=== PATIENT | female | born 1970 | race Caucasian/White ===

== ENCOUNTER 2018-05-09 21:14 | Inpatient (IN) ==
[2018-05-09] MEDS ORDERED: DUONEB (A & A) INH ONE (22:55)
[2018-05-09 23:03] LABS: BASO# 0.09 X1000 (0.0-0.2); BASO% 0.4 % (0.0-0.8); EOS# 0.24 X1000 (0.0-0.7); HEMATOCRIT 34.9 % (37.0-47.0); HEMOGLOBIN 11.9 g/dL (12.0-16.0); IMM GRAN# 0.08 X1000 (0.0-0.04); IMM GRAN% 0.3 % (0.0-0.5); LYMPH# 2.32 X1000 (1.2-3.4); LYMPH% 9.5 % (20.5-51.1); MCH 31.1 PG (27-31); MCHC 34.1 g/dL (33-37); MCV 91.1 FL (81-99); MONO# 2.89 X1000 (0.11-0.59); MONO% 11.8 % (1.7-9.3); MPV 9.4 FL (7.4-10.4); NEUT# 18.87 X1000 (1.4-6.5); PLT 431 X1000 (130-400); RBC 3.83 XMIL (4.2-5.4); RDW 11.8 % (11.5-14.5); WBC 24.49 X1000 (4.8-10.8)
--- NOTE | 2018-05-09 23:06 | PROVIDER DOCUMENTATION ---
HPI-Respiratory General - General Chief Complaint: Shortness of Breath Stated Complaint: POSS PNEUMONIA Time Seen by Provider: 05/09/18 22:44 Source: patient, old records Allergies/Adverse Reactions: Patient Allergies Allergy/AdvReac Type Severity Reaction Status Date / Time tramadol [From Ultram] Allergy Unknown Verified 05/09/18 22:56 pregabalin [From Lyrica] AdvReac Severe made me Verified 05/09/18 22:56 have a seizure 10 years ago Home Medications: Home Medication List Medication Instructions Recorded Confirmed Last Taken Type NK [No Home Medications] 05/09/18 05/09/18 Unknown History - History of Present Illness-Resp Nature of Presenting Problem: 48 yo WF smoker was last hospitalized in May 2017 with pneumonia. She was treated, improved and eventually went back to smoking around a pack per day. Two days ago she developed low grade fever, chills and purulent sputum production. She also developed CP which is pleuritic and mainly in the right upper lateral thorax. Onset/Duration: reports: 2 days ago Timing: reports: still present Cough Quality/Degree: reports: moderate, productive cough Episode Frequency: rare episodes Current Respiratory Medication Therapy: Initiated see nurses note Modifying Factors: improves with: nothing Associated Symptoms: reports: denies symptoms Review of Systems - Adult - REVIEW OF SYSTEMS - ADULT Constitutional: reports: see HPI, chills, fever, fatique Respiratory: reports: see HPI, cough, excessive sputum production, pleurisy, shortness of breath, wheezing Gastrointestinal: reports: no symptoms reported Genitourinary: reports: no symptoms reported Musculoskeletal: reports: no symptoms reported Integumentary: reports: no symptoms reported Neurological: reports: no symptoms reported Past History - Adult - PAST MEDICAL HISTORY-ADULT Review of Records: reports: Old Records Reviewed, Nursing Assessment Review, Medications Reviewed Major Childhood Illnesses: reports: denies history Cardiovascular: reports: denies history Respiratory: reports: denies history Gastrointestinal: reports: denies history Obstetrical/Gynecological: reports: denies history Genitourinary: reports: denies history Musculoskeletal: reports: denies history Neurological: reports: Seizures/Epilepsy Psychiatric: reports: anxiety Endocrine/Immune: reports: denies history Other Conditions: reports: denies history - PRIOR SURGERIES/PROCEDURES Surgical/Procedure History: reports: hysterectomy - IMMUNIZATION STATUS Childhood Immunizations: See Nurse Assessment Flu Vaccine: See Nurse Assessment - FAMILY HISTORY Family History: reviewed, not pertinent Physical Exam-General - PHYSICAL EXAM-ADULT Initial Vital Signs Reviewed: Yes - CONSTITUTIONAL General Appearance: appears well, alert, no apparent distress - EYES Eyes: PERRL/EOMI, pink conjunctivae, anisocoria - HEAD, EARS, NOSE, MOUTH & THROAT HENMT: normocephalic/atraumatic, moist mucous membranes, normal ENT inspection - NECK Neck: non-tender - RESPIRATORY Respiratory: chest non-tender, respiratory distress, decreased breath sounds, crackles, rales, rhonchi, wheezing. negative: lungs clear - CARDIOVASCULAR Cardiovascular: normal peripheral pulses, regular rate, rhythm - GASTROINTESTINAL (ABDOMEN) Abdominal Exam: normal bowel sounds, non tender, soft - MUSCULOSKELETAL Back Exam: normal inspection, no CVA tenderness, no vertebral tenderness Extremity: normal range of motion, non-tender - SKIN Integumentary: normal color, normal turgor - NEUROLOGIC Neurologic: grossly normal Progress - PLAN OF CARE/RESULTS Progress/Plan/Lab Results: Vital Signs - 8 hr 05/09/18 22:05 05/09/18 23:25 Temperature 99.8 F H Pulse Rate 113 H 98 H Respiratory Rate 20 20 Blood Pressure 122/73 O2 Sat by Pulse Oximetry 89 L 91 L Laboratory Results - last 24 hr 05/09/18 05/09/18 05/09/18 22:20 22:22 22:22 WBC 24.49 H RBC 3.83 L Hgb 11.9 L Hct 34.9 L MCV 91.1 MCH 31.1 H MCHC 34.1 RDW Std Deviation 11.8 Plt Count 431 H MPV 9.4 Immature Gran % (Auto) 0.3 Neut % (Auto) 77.0 H Lymph % (Auto) 9.5 L [place] % (Auto) 11.8 H Eos % (Auto) 1.0 Baso % (Auto) 0.4 Immature Gran # (Auto) 0.08 H Neut # (Auto) 18.87 H Lymph # (Auto) 2.32 [place] # (Auto) 2.89 H Eos # (Auto) 0.24 Baso # (Auto) 0.09 Segmented Neutrophils 80 H Lymphocytes 15 L Monocytes 3 Eosinophils 1 PT 13.3 INR 0.96 PTT (Actin FS) 33.4 Sodium 135 L Potassium 4.0 Chloride 96 L Carbon Dioxide 22 L Anion Gap 18 BUN 8 Creatinine 0.5 Estimated GFR/1.73 m2 > 60 BUN/Creatinine Ratio 16 Glucose 116 H Calculated Osmolality 269 Calcium 9.0 Total Bilirubin 0.40 AST 26 ALT 20 Alkaline Phosphatase 127 H Creatine Kinase 320 H Creatine Kinase Index 1.7 CK-MB (CK-2) 5.33 H Troponin T Total Protein 6.9 Albumin 3.5 Globulin 3.0 Albumin/Globulin Ratio 1.0 Plasma Lactate Urine Opiates Screen Ur Oxycodone Screen Urine Methadone Screen U Propoxyphene Qual Ur Barbituates Screen Ur Tricyclics Screen Ur Phencyclidine Scrn Ur Amphetamines Screen U Methamphetamines Scrn U Benzodiazepines Scrn Urine Cocaine Screen U Cannabinoids Screen 05/09/18 05/09/18 05/09/18 22:22 22:41 23:18 WBC RBC Hgb Hct MCV MCH MCHC RDW Std Deviation Plt Count MPV Immature Gran % (Auto) Neut % (Auto) Lymph % (Auto) [place] % (Auto) Eos % (Auto) Baso % (Auto) Immature Gran # (Auto) Neut # (Auto) Lymph # (Auto) [place] # (Auto) Eos # (Auto) Baso # (Auto) Segmented Neutrophils Lymphocytes Monocytes Eosinophils PT INR PTT (Actin FS) Sodium Potassium Chloride Carbon Dioxide Anion Gap BUN Creatinine Estimated GFR/1.73 m2 BUN/Creatinine Ratio Glucose Calculated Osmolality Calcium Total Bilirubin AST ALT Alkaline Phosphatase Creatine Kinase Creatine Kinase Index CK-MB (CK-2) Troponin T < 0.010 Total Protein Albumin Globulin Albumin/Globulin Ratio Plasma Lactate 0.8 Urine Opiates Screen PRESUMPTIVE POSITIVE A Ur Oxycodone Screen NONE DETECTED Urine Methadone Screen NONE DETECTED U Propoxyphene Qual NONE DETECTED Ur Barbituates Screen NONE DETECTED Ur Tricyclics Screen NONE DETECTED Ur Phencyclidine Scrn NONE DETECTED Ur Amphetamines Screen PRESUMPTIVE POSITIVE A U Methamphetamines Scrn PRESUMPTIVE POSITIVE A U Benzodiazepines Scrn NONE DETECTED Urine Cocaine Screen NONE DETECTED U Cannabinoids Screen NONE DETECTED Orders Category Date Time Status Cardiac Monitoring DIRECTED Care 05/09/18 22:40 Active IV Insertion ORDERED Care 05/09/18 22:40 Completed Notify MD of + Sepsis Screen NOW Care 05/09/18 22:40 Active Notify Physician As Ordered Care 05/09/18 22:40 Active CHEST-PORTABLE [RAD] Stat Exams 05/09/18 22:40 Taken BLOOD CULTURE [BLDCUL] Stat Lab 05/09/18 22:40 Ordered CBC WITH DIFF [HEME] Stat Lab 05/09/18 22:20 Completed CK PROFILE [SP CHEM] Stat Lab 05/09/18 22:22 Completed COMPREHENSIVE METABOLIC PANEL [CHEM] Stat Lab 05/09/18 22:22 Completed LACTATE, PLASMA [CHEM] Q3H Lab 05/09/18 22:41 Completed PROTIME WITH INR [COAG] Stat Lab 05/09/18 22:22 Completed PTT [COAG] Stat Lab 05/09/18 22:22 Completed TROPONIN T Stat Lab 05/09/18 22:[address] W/POSS RFLX CULT [URINALYSIS] Stat Lab 05/09/18 22:40 Or[address] DRUG SCREEN [address] Stat Lab 05/09/18 23:18 Completed Albuterol 2.5MG/Ipratrop 0.5MG [Duoneb (A & A)] Med 05/09/18 22:55 Discontinued 3 ml INH NOW ONE Azithromycin [Zithromax] Med 05/09/18 23:12 Discontinued 500 mg PO NOW ONE CefTRIAXONE [Rocephin] 1 gm Med 05/09/18 23:11 Discontinued 0.9% Sodium Chloride Inj [Ns] 50 ml IV NOW Methylprednisolone Sod Succ [Solu-Medrol] Med 05/09/18 23:11 Discontinued 80 mg IV NOW ONE Aerosol Treatments Routine Oth 05/09/18 22:55 Completed Aerosol Treatments Stat Oth 05/09/18 22:55 Completed Oxygen Device Stat Oth 05/09/18 22:40 Active Result Diagrams: 05/09/18 22:20 05/09/18 22:22 - REASSESSMENT Reassessment #1 Time Reassessed: 00:01 Status: improving Departure - Departure Date of Disposition Decision: 05/10/18 Time of Disposition Decision: 00:21 DIAGNOSIS: Pneumonia Qualifiers: Pneumonia type: due to unspecified organism Laterality: bilateral Lung location : lower lobe of lung Qualified Code(s): J18.1 - Lobar pneumonia, unspecified organism Disposition: ADMITTED INPATIENT 09 Certified Medical Emergency: Emergent Condition: Stable Referrals and Follow-Ups: None,PCP [Primary Care Provider] - - Critical Care Note This patient required my direct & personal management of CC.: Yes Total Time (mins): 30 Critical Care Statement: This patient required my direct personal management to treat or rule out processes, the absence of which, could potentiallly result in sudden, clinically significant life or limb threatening deterioration. Attestation - Physician/ KATRIN Attestation The physician spent face to face time with patient:: Yes Advanced Practice Provider documentation review:: Supervising physician onsite and consulted in the evaluation and care of this patient. The physician did have a face to face encounter with the patient.
[2018-05-09] MEDS ORDERED: ROCEPHIN 1 GM in NS 50 ML IV ONE (23:11)
[2018-05-09] MEDS ORDERED: SOLU-MEDROL IV ONE (23:11)
[2018-05-09] MEDS ORDERED: ZITHROMAX PO ONE (23:12)
[2018-05-09 23:20] LABS: AGAP 18; ALBUMIN 3.5 g/dL (3.5-5.0); ALKALINE PHOSPHATASE 127 U/L (32-104); BUN 8 mg/dL (8-22); CHLORIDE 96 mmol/L (98-107); COSMO 269; CREATININE 0.5 mg/dL (0.5-0.9); ESTIMATED GFR > 60; GLUCOSE 116 mg/dL (70-104); GOT 26 U/L (10-30); GPT 20 U/L (10-36); SODIUM 135 mmol/L (136-145); TCO2 22 mmol/L (25-35); TOTAL PROTEIN 6.9 g/dL (6.3-8.3)
[2018-05-09 23:21] LABS: EOS 1 % (1-10); LYMPHS 15 % (21-51); MONO 3 % (1-9); SEGS 80 % (42-75)
[2018-05-09 23:22] LABS: CK PROFILE 320 U/L (24-173)
[2018-05-09 23:29] LABS: INR 0.96; PROTIME 13.3 Seconds (11.0-16.0)
[2018-05-09 23:30] LABS: PTT 33.4 Seconds (22.3-41.8)
[2018-05-09 23:40] LABS: UR AMPHETAMINES QUAL PRESUMPTIVE POSITIVE (NONE DETECT); UR BARBITUATES QUAL NONE DETECTED (NONE DETECT); UR BENZODIAZEPIN QUAL NONE DETECTED (NONE DETECT); UR CANNABINOIDS QUAL NONE DETECTED (NONE DETECT); UR COCAINE QUAL NONE DETECTED (NONE DETECT); UR METHADONE QUAL NONE DETECTED (NONE DETECT); UR METHAMPHETAMINE QUAL PRESUMPTIVE POSITIVE (NONE DETECT); UR OPIATES QUAL PRESUMPTIVE POSITIVE (NONE DETECT); UR OXYCODONE QUAL NONE DETECTED (NONE DETECT); UR PCP QUAL NONE DETECTED (NONE DETECT); UR PROPOXYPHENE QUAL NONE DETECTED (NONE DETECT); UR TCA QUAL NONE DETECTED (NONE DETECT)
[2018-05-09 23:41] LABS: CK INDEX 1.7 (0.0-2.5); CK-MB 5.33 ng/mL (0.0-5.0)
[2018-05-10] MEDS ORDERED: TORADOL IV PRN (00:12)
[2018-05-10] MEDS ORDERED: SOLU-MEDROL IV ONE (00:19)
[2018-05-10 00:20] LABS: BILIRUBIN URINE NEGATIVE (NEGATIVE); BLOOD URINE 1+ (NEGATIVE); CLARITY CLEAR (CLEAR); COLOR AMBER; GLUCOSE URINE NEGATIVE (NEGATIVE); KETONE URINE TRACE mg/dL (NEGATIVE); LEUKOCYTES URINE 1+ (NEGATIVE); NITRITE URINE NEGATIVE (NEGATIVE); PH URINE 6.5; PROTEIN URINE 1+(30 mg/dL) mg/dL (NEGATIVE); SP GRAVITY URINE 1.015; URINE BACTERIA 2+ /HFP; URINE EPITHELIAL CELLS <10 /HPF (<10); URINE RBC <10 /HPF (<10); URINE SOURCE CLEAN CATCH; UROBILINOGEN URINE NORMAL
[2018-05-10] MEDS: DUONEB (A & A) INH SCH ×4 (03:06→15:42)
[2018-05-10 05:00] LABS: INFLUENZA A NEGATIVE (NEGATIVE); INFLUENZA B NEGATIVE (NEGATIVE)
[2018-05-10] MEDS ORDERED: TESSALON PO PRN (05:36)
[2018-05-10] MEDS ORDERED: ZOFRAN IV PRN (05:36)
[2018-05-10] MEDS ORDERED: DUONEB (A & A) INH SCH (07:30)
[2018-05-10] MEDS ORDERED: TYLENOL PO PRN (10:17)
[2018-05-10] MEDS ORDERED: NS 1,000 ML IV SCH (10:30)
[2018-05-10] MEDS ORDERED: ZITHROMAX 500 MG/NS 500 MG/250 ML IVPB IV SCH (10:30)
--- NOTE | 2018-05-10 10:51 | Diag Imaging Result Doc PS360 ---
EXAM: CHEST-PORTABLE - 05/09/2018 HISTORY: sepsis protocol, cough TECHNIQUE: Portable chest COMPARISON: 05/29/2017 FINDINGS: Heart size is normal. There is mild prominence of basilar markings, although these may be exaggerated by breast shadow overlap. There is no dense consolidation, pleural effusion, or pneumothorax identified. IMPRESSION: Mild prominence of basilar markings. Mild basilar infiltrates cannot be excluded. Electronically signed by Juan Carlos Matute 05/10/2018 10:48 AM
[2018-05-10 11:48] VITALS: BP 107/92
--- NOTE | 2018-05-10 14:45 | HISTORY AND PHYSICAL ---
CHIEF COMPLAINT: Shortness of breath, cough and congestion for 2 weeks. HISTORY OF PRESENT ILLNESS: This is a 48-year-old female with a history of fibromyalgia, seizures, and anxiety she presents to the emergency room complaining of low-grade fever, chills and a productive cough. Over the last 12 hours or so she developed a pleuritic chest pain that is in the right side that is present with coughing and deep breathing. Chest x-ray revealed bilateral lower lobe pneumonia. Blood cultures were obtained and she was given Rocephin, azithromycin and steroids and is being admitted for further evaluation and treatment. PAST MEDICAL HISTORY: Fibromyalgia, seizures, anxiety. PAST SURGICAL HISTORY: Hysterectomy. SOCIAL HISTORY: She smokes a pack a day. She denies any alcohol or illicit drug use. ALLERGIES: Tramadol and pregabalin. HOME MEDICATIONS: She does not take any home medications on a routine basis. REVIEW OF SYMPTOMS: Is discussed with the patient with pertinent positives stated in the HPI. She denied any palpitations, syncope, dizziness, any nausea, vomiting, diarrhea, constipation, black or bloody vomitus or stools, any hematuria, dysuria, frequency, urgency. PHYSICAL EXAMINATION: GENERAL: This is a 48-year-old female who is sitting up in the bed in no distress. VITAL SIGNS: Blood pressure is 117/71, heart rate 78, respirations are 20, temperature is 98.3 degrees with O2 saturation that were 87% on room air and 93-96% on 3 L nasal cannula. HEENT: Pupils are equal, round, react to light. EOMs are intact. Sclerae are anicteric. Head is normocephalic, atraumatic. Mucous membranes are moist. NECK: Supple with trachea midline. CARDIOVASCULAR: Regular rate and rhythm. S1 and S2 appreciated. She has no lower extremity edema. Peripheral pulses are palpable x4 extremities. PULMONARY: She has wheezes scattered throughout with decreased breath sounds. Chest rise and fall symmetrically with respiration. No increased work of breathing noted. GASTROINTESTINAL: Abdomen is soft, nontender, nondistended. Bowel sounds in all 4 quadrants. NEUROLOGIC: She is alert and oriented x3. SKIN: Warm and dry with no rashes or lesions. LABS: WBC is 24.4 with hemoglobin 11.9, hematocrit 34.9 and platelets of 431,000. Sodium is 135, potassium 4, BUN 8, creatinine 0.5 with a glucose of 116. Troponin is negative. Urinalysis is essentially negative. She does have 10 to 20 microscopic white blood cells. Urine drug screen was presumptive positive for opiates, amphetamines and methamphetamines. Influenza A and B were negative. Blood cultures, urine culture pending. Chest x-ray revealed mild basilar infiltrates. ASSESSMENT AND PLAN: 1. Bilateral lower lobe pneumonia. We will continue azithromycin and Rocephin and any further antibiotics will be culture driven. 2. Hypoxemia. Will give supplemental oxygen and monitor saturations. 3. Leukocytosis secondary to #1. PLAN: We will continue antibiotics as stated above, any further will be culture driven. We will give duo nebs q.4 hours with steroids to taper, start incentive spirometer, get a sputum specimen, will continue her telemetry. Further treatments pending hospital course. Dictated by BROCK Butler for Chi Adams MD This chart was documented by, BROCK Butler and accurately reflects the services performed, treatment plan and medical decisions as attested by the providers signature Chi Adams MD. cc: BROCK Butler MD
[2018-05-10] MEDS ORDERED: NICODERM PATCH TD SCH (16:15)
[2018-05-10] MEDS ORDERED: ROCEPHIN 1 GM in NS 50 ML IV SCH (18:00)
--- NOTE | 2018-05-10 18:38 | HISTORY AND PHYSICAL ---
ADDENDUM TO HISTORY AND PHYSICAL: I saw the patient [id number], and fully agree with the assessment and plan of Nurse Practitioner Rhianonn Petit. This is a 48-year-old female who was admitted with bilateral pneumonia, along with hypoxemia, fever and leukocytosis. She has been a chronic tobacco user. She will be treated with IV ceftriaxone along with azithromycin. I am also going to provide nicotine patch since she is a heavy tobacco user. General supportive care, including IV fluids, will be provided. Please refer to the chart for further documentation. cc: Chi Adams MD
--- NOTE | 2018-05-12 14:38 | DISCHARGE SUMMARY ---
ADMISSION DATE: 05/10/2018 DISCHARGE DATE: 05/10/2018 DISCHARGE DIAGNOSES: 1. Leukocytosis secondary to bilateral pneumonia with hypoxemia. 2. Nicotine dependence. HOSPITAL COURSE: This is a 48-year-old female who presented with low-grade fever, chills, and productive cough. She also had some pleuritic chest pain and her chest x-ray revealed bilateral lower lobe pneumonia. She was admitted to the hospital and was given ceftriaxone along with azithromycin intravenously. She had also received supplemental oxygen and IV fluids. The same day at around 6 p.m. she decided to leave the hospital against medical advise and therefore left the hospital. DISPOSITION: The patient left against medical advice. cc: Chi Adams MD
== END 2018-05-10 17:00 | disposition left against medical advice (07) | DRG 195 ==
LOC: P.ED 21:14 → P.MEDSURG 05-10 00:36
PROVIDERS: ATTEND Internal Medicine
CPT/HCPCS: 71010; 71045; 80053; 80104; 80301; 80305; 81001; 82550; 82553; 83605; 84484; 85025; 85610; 85730; 87040; 87088; 87275; 87276; 87804; 94640; 94761; 94799; 96365; 96375; 99285; A9270; G0431; G0434; G0477; J0456; J0696; J1885; J2405; J2930; J7030

== ENCOUNTER 2019-05-21 16:13 | Inpatient (IN) ==
--- NOTE | 2019-05-21 17:37 | Diag Imaging Result Doc PS360 ---
EXAM: CHEST-2 VIEWS 05/21/2019 HISTORY: COUGH TECHNIQUE: PA and lateral chest COMMENT: there is ill-defined opacity in both lung bases. This is apparently worse in the right middle lobe than on 05/15/2019. The heart size is not enlarged. IMPRESSION: Mild bronchopneumonia particularly in the right middle lobe. Electronically signed by Tano Joseph 05/21/2019 5:34 PM
[2019-05-21] MEDS ORDERED: ROCEPHIN 1 GM in NS 50 ML IV ONE ×2 (17:42→19:03)
[2019-05-21 18:55] LABS: BASO# 0.04 X1000 (0.0-0.2); BASO% 0.2 % (0.0-0.8); EOS# 0.24 X1000 (0.0-0.7); EOS% 1.2 % (0.0-10.0); HEMATOCRIT 33.8 % (37.0-47.0); HEMOGLOBIN 11.1 g/dL (12.0-16.0); IMM GRAN# 0.13 X1000 (0.0-0.04); IMM GRAN% 0.6 % (0.0-0.5); LYMPH# 2.33 X1000 (1.2-3.4); LYMPH% 11.6 % (20.5-51.1); MCHC 32.8 g/dL (33-37); MCV 94.4 FL (81-99); MONO# 1.22 X1000 (0.11-0.59); MPV 9.1 FL (7.4-10.4); NEUT# 16.21 X1000 (1.4-6.5); NEUT% 80.4 % (42.2-75.2); PLT 532 X1000 (130-400); RBC 3.58 XMIL (4.2-5.4); RDW 13.2 % (11.5-14.5); WBC 20.17 X1000 (4.8-10.8)
[2019-05-21] MEDS ORDERED: NS 1,000 ML IV ONE ×2 (19:10→19:22)
[2019-05-21 19:12] LABS: AGAP 15; ALBUMIN 3.2 g/dL (3.5-5.0); ALKALINE PHOSPHATASE 342 U/L (32-104); BUN 10 mg/dL (8-22); CALCIUM 8.6 mg/dL (8.8-10.2); CHLORIDE 97 mmol/L (98-107); COSMO 268; CREATININE 0.5 mg/dL (0.5-0.9); ESTIMATED GFR > 60; GLUCOSE 82 mg/dL (70-104); GOT 47 U/L (10-30); GPT 63 U/L (10-36); SODIUM 135 mmol/L (136-145); TCO2 24 mmol/L (25-35); TOTAL PROTEIN 8.3 g/dL (6.3-8.3)
[2019-05-21] MEDS ORDERED: TYLENOL PO PRN (19:22)
[2019-05-21] MEDS ORDERED: ZOFRAN IV PRN (19:22)
--- NOTE | 2019-05-21 19:23 | PROVIDER DOCUMENTATION ---
This chart was entered by Blanca Nazario Scribe, acting as scribe for Renee Islas CRNP. HPI-General Adult - General Chief Complaint: Cough Stated Complaint: FLU LIKE SYMPTOMS Time Seen by Provider: 05/21/19 17:22 Source: patient Allergies/Adverse Reactions: Patient Allergies Allergy/AdvReac Type Severity Reaction Status Date / Time tramadol [From Ultram] Allergy Unknown Verified 05/21/19 17:55 pregabalin [From Lyrica] AdvReac Severe made me Verified 05/21/19 17:55 have a seizure 10 years ago Home Medications: Home Medication List Medication Instructions Recorded Confirmed Last Taken Type NK [No Home Medications] 05/21/19 05/21/19 Unknown History - History of Present Illness -Gen Adult Nature of Presenting Problems: 49yof presents to ED cc cough with yellow/lofton mucous, SOB, aches for 2 days. pt reports she was dx with flu 1 wk ago and symptoms have gotten worse. Pt is ill appearing upon exam. Location of Pain/Injury: reports: generalized Quality of Pain: reports: aching, tightness Severity: reports: mild, moderate Onset/Duration: reports: 2 days ago Timing: reports: still present Modifying Factors: worse with: coughing Associated Symptoms: reports: cough, fatigue, fever/chills, shortness of breath Similar Symptoms Previously?: Yes Recently seen or treated by another doctor?: Yes (seen 1 week ago) Review of Systems - Adult - REVIEW OF SYSTEMS - ADULT Constitutional: reports: see HPI, chills, fever, fatique Eyes: reports: no symptoms reported Ears, Nose, Mouth & Throat: reports: no symptoms reported Cardiovascular: reports: no symptoms reported Respiratory: reports: see HPI, cough, shortness of breath Gastrointestinal: reports: no symptoms reported Genitourinary: reports: no symptoms reported Musculoskeletal: reports: no symptoms reported Integumentary: reports: no symptoms reported Neurological: reports: no symptoms reported Psychiatric: reports: no symptoms reported Endocrine: reports: no symptoms reported Hematologic/Lymphatic: reports: no symptoms reported Allergic/Immunologic: reports: no symptoms reported All Other Systems: Reviewed and Negative Past History - Adult - PAST MEDICAL HISTORY-ADULT Review of Records: reports: Old Records Reviewed, Nursing Assessment Review, Medications Reviewed, Social history reviewed & non-contributory. Major Childhood Illnesses: reports: denies history Cardiovascular: reports: denies history Respiratory: reports: COPD Gastrointestinal: reports: denies history Obstetrical/Gynecological: reports: endometriosis Genitourinary: reports: denies history Musculoskeletal: reports: denies history Neurological: reports: Seizures/Epilepsy Psychiatric: reports: anxiety Endocrine/Immune: reports: denies history Other Conditions: reports: denies history - PRIOR SURGERIES/PROCEDURES Surgical/Procedure History: reports: hysterectomy, other - IMMUNIZATION STATUS Childhood Immunizations: See Nurse Assessment Flu Vaccine: See Nurse Assessment - FAMILY HISTORY Family History: reviewed, not pertinent Physical Exam-General - PHYSICAL EXAM-ADULT Initial Vital Signs Reviewed: Yes - CONSTITUTIONAL General Appearance: alert. negative: appears well, anxious, combative - EYES Eyes: PERRL/EOMI, pink conjunctivae. negative: photophobia - HEAD, EARS, NOSE, MOUTH & THROAT HENMT: normocephalic/atraumatic, moist mucous membranes. negative: angioedema - NECK Neck: supple, normal inspection - RESPIRATORY Respiratory: chest non-tender, crackles (left base). negative: wheezing - CARDIOVASCULAR Cardiovascular: normal peripheral pulses, regular rate, rhythm, no edema. negative: bradycardia, tachycardia - GASTROINTESTINAL (ABDOMEN) Abdominal Exam: normal bowel sounds, non tender, soft. negative: guarding - MUSCULOSKELETAL Extremity: normal inspection. negative: deformity - SKIN Integumentary: normal color, normal turgor. negative: diaphoresis, jaundice, rash - PSYCHIATRIC Psych/Mental Status: normal mood/affect, oriented x 3. negative: anxious, disheveled Progress - PLAN OF CARE/RESULTS Progress/Plan/Lab Results: Vital Signs - 8 hr 05/21/19 16:21 Temperature 98.4 F Pulse Rate 102 H Respiratory Rate 20 Blood Pressure 139/86 O2 Sat by Pulse Oximetry 94 L Orders Category Date Time Status cxr [CHEST-2 VIEWS] [RAD] Stat Exams 05/21/19 17:08 Completed BLOOD CULTURE [BLDCUL] Stat Lab 05/21/19 17:42 Uncollected CBC WITH ELECTRONIC DIFF [HEME] Stat Lab 05/21/19 17:42 Uncollected COMPREHENSIVE METABOLIC PANEL [CHEM] Stat Lab 05/21/19 17:42 Uncollected LACTATE, PLASMA [CHEM] Stat Lab 05/21/19 17:42 Uncollected CefTRIAXONE [Rocephin] 1 gm Med 02/07/20 17:42 Active 0.9% Sodium Chloride Inj [Ns] 50 ml IV NOW Result Diagrams: 05/21/19 18:35 05/21/19 18:35 - XRAY 1 XRAY: Bilateral XRAY Study: Chest Impression: See EMR Report (IMPRESSION: Mild bronchopneumonia particularly in the right middle lobe. Electronically signed by Tano Joseph 05/21/2019 5:34 PM) - CONSULTS/PCP/HOSPITALIST Notification #1 *Consult/PCP/Hospitalist*: DR. DURAN Time Discussed: 19:22 Consult Disposition: Admit Departure - Departure Date of Disposition Decision: 05/21/19 Time of Disposition Decision: 19:14 DIAGNOSIS: Pneumonia Qualifiers: Pneumonia type: due to unspecified organism Laterality: right Lung location: middle lobe of lung Qualified Code(s): J18.1 - Lobar pneumonia, unspecified organism Disposition: ADMITTED INPATIENT 09 Certified Medical Emergency: Emergent Condition: Stable Referrals and Follow-Ups: None,PCP [Primary Care Provider] - - Critical Care Note This patient required my direct & personal management of CC.: No Attestation - Physician/ KATRIN Attestation Patient care was provided by Advanced Practice Provider:: Yes Advanced Practice Provider:: Renee Islas Advanced Practice Provider documentation review:: The Mid-level provider documentation, treatment plan and medical decision making was reviewed by the ysician who agrees with all treatment and medical decision making by the MLP. The physician spent face to face time with patient:: No Advanced Practice Provider documentation review:: Supervising physician onsite and consulted in the evaluation and care of this patient. The physician did not have a face to face encounter with the patient. This chart was documented by the indicated scribe, (Blanca Nazario Scribe) and accurately reflects the services I performed and decisions made by me, Renee Islas CRNP, as attested by the provider's signature.
[2019-05-21] MEDS: TORADOL IV PRN (20:14)
[2019-05-21] MEDS: DUONEB (A & A) INH SCH ×2 (20:16→23:17)
[2019-05-21] MEDS ORDERED: NICODERM PATCH TD ONE (21:14)
[2019-05-22 00:02] LABS: INFLUENZA A NEGATIVE (NEGATIVE); INFLUENZA B POSITIVE (NEGATIVE)
[2019-05-22] MEDS: DUONEB (A & A) INH SCH ×6 (03:28→23:29)
[2019-05-22] MEDS: TORADOL IV PRN ×4 (05:21→20:23)
[2019-05-22] MEDS: ATIVAN PO PRN ×3 (05:21→20:23)
[2019-05-22 06:12] LABS: BASO# 0.02 X1000 (0.0-0.2); BASO% 0.1 % (0.0-0.8); EOS# 0.18 X1000 (0.0-0.7); EOS% 1.2 % (0.0-10.0); HEMATOCRIT 32.7 % (37.0-47.0); HEMOGLOBIN 10.5 g/dL (12.0-16.0); IMM GRAN# 0.07 X1000 (0.0-0.04); IMM GRAN% 0.5 % (0.0-0.5); LYMPH# 2.67 X1000 (1.2-3.4); LYMPH% 18.5 % (20.5-51.1); MCH 30.4 PG (27-31); MCHC 32.1 g/dL (33-37); MCV 94.8 FL (81-99); MONO# 0.87 X1000 (0.11-0.59); NEUT# 10.62 X1000 (1.4-6.5); NEUT% 73.7 % (42.2-75.2); PLT 510 X1000 (130-400); RBC 3.45 XMIL (4.2-5.4); RDW 13.2 % (11.5-14.5); WBC 14.43 X1000 (4.8-10.8)
[2019-05-22 06:37] LABS: AGAP 11; ALBUMIN 2.8 g/dL (3.5-5.0); ALKALINE PHOSPHATASE 272 U/L (32-104); BUN 8 mg/dL (8-22); CALCIUM 8.3 mg/dL (8.8-10.2); CHLORIDE 103 mmol/L (98-107); COSMO 271; CREATININE 0.5 mg/dL (0.5-0.9); ESTIMATED GFR > 60; GLUCOSE 112 mg/dL (70-104); GOT 32 U/L (10-30); GPT 47 U/L (10-36); POTASSIUM 3.9 mmol/L (3.5-5.1); SODIUM 136 mmol/L (136-145); TCO2 22 mmol/L (25-35); TOTAL PROTEIN 7.5 g/dL (6.3-8.3)
[2019-05-22] MEDS: ROCEPHIN 1 GM in NS 50 ML IV SCH (08:45)
[2019-05-22] MEDS: ZITHROMAX PO SCH (08:46)
[2019-05-22] MEDS: SOLU-MEDROL IV SCH ×3 (11:02→22:04)
[2019-05-22] MEDS: ROBITUSSIN-AC PO PRN ×3 (11:02→20:23)
--- NOTE | 2019-05-22 17:54 | HISTORY AND PHYSICAL ---
CHIEF COMPLAINT: Cough, shortness of breath, body aches. HPI: This is a 49-year-old female who reports being diagnosed with the flu a week prior with symptoms increasing. She has developed an increasing cough with yellow secretions, generalized body aches and shortness of breath at rest. Influenza A is negative. Influenza B is positive. Of note she was influenza A positive on 05/15/2019. At that time she was not given Tamiflu as she had symptoms for 2 weeks. PAST MEDICAL HISTORY: COPD, seizures. PAST SURGICAL HISTORY: Hysterectomy. SOCIAL HISTORY: She smokes a pack a day. She denies alcohol or illicit drug use. ALLERGIES: Tramadol, Lyrica and opiates. Of note, she states she has a seizure after taking Lyrica. HOME MEDICATIONS: None. REVIEW OF SYSTEMS: Discussed with patient with pertinent positives stated in the HPI. She denied any syncope or dizziness, any chest pain or palpitations, any nausea, vomiting, diarrhea, constipation, black or bloody vomitus or stools, hematuria, dysuria frequency, urgency. PHYSICAL EXAMINATION: GENERAL: This is a 49-year-old female who is sitting up on the bed on the [facility] floor in no distress. VITAL SIGNS: Blood pressure is 140/79 with a heart rate of 83, respirations are 20, temperature is 97.9 degrees oral with room air saturations 95 to 98 percent. HEENT: Pupils are equal, round, react to light. EOMs are intact. Sclerae are anicteric. Head is normocephalic, atraumatic. Mucous membranes are moist. NECK: Supple with trachea midline. CARDIOVASCULAR: Regular rate and rhythm. S1 and S2 are appreciated. She has no lower extremity edema. Calves are nontender bilateral with peripheral pulses palpable x4 extremities. PULMONARY: She has wheezes scattered throughout. Chest rises and falls symmetric respiration. Chest wall is nontender to palpation. GASTROINTESTINAL: Abdomen soft, nontender, nondistended with bowel sounds in all 4 quadrants. NEUROLOGIC: She is alert, oriented x3. SKIN: Warm and dry. LABS: WBC is 20.1 with hemoglobin 11.1, hematocrit 33.8, platelets 532,000. Sodium 135, potassium 4, BUN 10, creatinine 0.5 with a glucose of 82. Influenza B is positive. Blood cultures are pending. Chest x-ray revealed mild bronchopneumonia in the right middle lobe. ASSESSMENT AND PLAN: 1. Right middle lobe pneumonia. 2. Influenza B positive in a patient who was influenza A positive 7 days prior. 3. Leukocytosis. 4. History of chronic obstructive pulmonary disease. 5. Continued tobacco use and abuse. PLAN: The patient has been admitted to the medical-surgical floor at [facility] with DuoNeb q.4 hours, will add q.2 hours p.r.n., steroids, she was started on Rocephin in the emergency room which we will continue, will add azithromycin for coverage. Will continue Toradol as needed with Robitussin AC q.4-6 hours for cough. Repeat a CBC and BMP in the morning. Plan was discussed with Dr. Adams. Further treatments pending hospital course. Dictated by BROCK Butler for Paulo Adams MD cc: BROCK Butler MD
--- NOTE | 2019-05-23 02:44 | HISTORY AND PHYSICAL ---
ADDENDUM: Patient presented to the hospital with increased cough, congestion and wheezing. Noted to be flu B positive with leukocytosis and right middle lobe pneumonia. We are going to place her in the hospital, antibiotics, breathing treatments, oxygen. Further orders as needed. Hopefully, she will improve and can discharge home over the next [*] cc: Paulo Adams MD
[2019-05-23] MEDS: ROBITUSSIN-AC PO PRN ×2 (03:16→09:14)
[2019-05-23] MEDS: TORADOL IV PRN ×2 (03:16→09:35)
[2019-05-23] MEDS: ATIVAN PO PRN ×2 (03:16→09:35)
[2019-05-23] MEDS: DUONEB (A & A) INH SCH ×3 (03:37→10:54)
[2019-05-23 06:36] VITALS: BP 131/73
[2019-05-23 06:59] LABS: HEMATOCRIT 29.4 % (37.0-47.0); HEMOGLOBIN 9.4 g/dL (12.0-16.0); MCH 30.4 PG (27-31); MCV 95.1 FL (81-99); MPV 9.1 FL (7.4-10.4); RBC 3.09 XMIL (4.2-5.4); RDW 13.1 % (11.5-14.5); WBC 14.9 X1000 (4.8-10.8)
[2019-05-23 07:22] LABS: AGAP 10; BUN 10 mg/dL (8-22); CALCIUM 8.9 mg/dL (8.8-10.2); CHLORIDE 106 mmol/L (98-107); COSMO 279; CREATININE 0.4 mg/dL (0.5-0.9); ESTIMATED GFR > 60; GLUCOSE 148 mg/dL (70-104); POTASSIUM 4.3 mmol/L (3.5-5.1); SODIUM 139 mmol/L (136-145); TCO2 23 mmol/L (25-35)
[2019-05-23] MEDS: ROCEPHIN 1 GM in NS 50 ML IV SCH (09:14)
[2019-05-23] MEDS: ZITHROMAX PO SCH (09:14)
[2019-05-23] MEDS: SOLU-MEDROL IV SCH (12:03)
--- NOTE | 2019-05-24 12:26 | DISCHARGE SUMMARY ---
ADMISSION DATE: 05/21/2019 DISCHARGE DATE: 05/23/2019 ADDENDUM: Patient seen and examined by myself. Full note dictated and discussed with nurse practitioner. On discharge, patient is awake, alert. She is much improved. Breathing is much better. She is ambulating without any difficulty. She does have influenza type B. She was recently diagnosed with influenza type A, uncertain of when B started. Therefore, we have started her on Tamiflu. We will continue antibiotics for her pneumonia. Further orders as needed. She will follow up outpatient with treatment facility of choice. Please see full note. TIME SPENT: Greater than 30 minutes. cc: Paulo Adams MD
== END 2019-05-23 14:00 | disposition home or self-care (01) | DRG 194 ==
LOC: P.ED 16:13 → P.MEDSURG 20:59
PROVIDERS: ATTEND Family Medicine